=== PATIENT | female | born 1950 | race Two or more races ===

== ENCOUNTER 2021-08-24 10:40 | Outpatient (CLI) | payer OTHER | END 2021-08-24 10:50 | disposition home or self-care (01) | LOC: PPH VACUNA 10:40 | PROVIDERS: ATTEND Emergency Medicine Pediatric Emergency Medicine | DX: Z23 Encounter for immunization (principal) ==

== ENCOUNTER 2024-04-22 12:53 | Emergency (ER) | payer OTHER ==
[~2024-04-22] VITALS: Ht 157.5 cm; Wt 81.2 kg
[2024-04-22 13:22] VITALS: BP 121/77; O2SAT 99
[2024-04-22] MEDS ORDERED: ZITHROMAX500 MG PO (13:25)
[2024-04-22] MEDS ORDERED: G-ZYNCOF 20-40473 ML (13:27)
[2024-04-22] MEDS ORDERED: XOPENEX CO1.25 MG/0. (13:28)
[2024-04-22] MEDS ORDERED: SYNTHROID50 MCG PO (13:30)
[2024-04-22] MEDS ORDERED: NEURONTIN300 MG PO (13:31)
[2024-04-22] MEDS ORDERED: NORVASC2.5 M1 PO (13:31)
[2024-04-22] MEDS ORDERED: ZETIA10 MG (13:31)
[2024-04-22] MEDS ORDERED: CYMBALTA20 MG PO (13:32)
[2024-04-22] MEDS ORDERED: METHYLPREDNISOLONE SOD SUCC 125 MG VIAL ONE (13:41)
[2024-04-22] MEDS ORDERED: GUAIFENESIN/DEXTROMETHORPHAN 10ML BLIST.PACK PO ONE ×2 (13:42→13:45)
[2024-04-22] MEDS ORDERED: LEVALBUTEROL HCL 1.25 MG/3 ML SOLUTION IH SCH (13:45)
[2024-04-22] MEDS ORDERED: METHYLPREDNISOLONE SOD SUCC 125 MG VIAL IV ONE (13:45)
[2024-04-22 14:14] LABS: HEMATOCRIT 41.4 % (36.0-45.00); MEAN CELL VOLUME 98.5 fL (80.00-100.00); MEAN CORPUSCULAR HEMOGLOBIN 33.2 pg (27.00-32.0); MEAN CORPUSCULAR HGB CONC 33.7 g/dl (32.0-36.0); PLATELET COUNT 258 K/uL (150-450); RED CELL DISTRIBUTION WIDTH 13.3 % (11.5-14.5)
[2024-04-22] MEDS ORDERED: LEVALBUTEROL HCL 1.25 MG/3 ML SOLUTION IH ONE (14:15)
[2024-04-22] MEDS ORDERED: XOPENEX CO1.25 MG/0. IH (14:33)
[2024-04-22] MEDS ORDERED: OSEL75CA PO (14:33)
[2024-04-22] MEDS ORDERED: TUSNEL LIQUID178 ML PO (14:33)
[2024-04-22] MEDS ORDERED: OSELTAMIVIR PHOSPHATE 75 MG CAPSULE PO ONE ×2 (14:45→14:51)
== END 2024-04-22 15:00 | disposition home or self-care (01) ==
LOC: ER 12:56
PROVIDERS: General Practice
DX: J45.909 Unspecified asthma, uncomplicated (principal); J10.1 Influenza due to other identified influenza virus with other respiratory manifestations; Z20.822 Contact with and (suspected) exposure to COVID-19; I10 Essential (primary) hypertension; Z91.013 Allergy to seafood